=== PATIENT | female | born 1960 | race Caucasian/White ===

== ENCOUNTER → 2025-01-22 13:26 | Outpatient (REF) | payer MEDICARE, OTHER, SELFPAY | LOC: HWRAD 13:26 | PROVIDERS: ATTENDING PHYSICIAN Urology; FAMILY PHYSICIAN Family Medicine | DX: R31.29 Other microscopic hematuria (principal); N32.81 Overactive bladder; N39.3 Stress incontinence (female) (male); M62.89 Other specified disorders of muscle; N95.8 Other specified menopausal and perimenopausal disorders | CPT/HCPCS: 76770; 76830; 76856 ==

== ENCOUNTER → 2025-03-18 13:20 | Outpatient (REF) | payer MEDICARE, OTHER, SELFPAY ==
[2025-03-18 14:07] LABS: Hematocrit 42.7 % (37.0-47.0); Hemoglobin 14.3 g/dL (12.0-16.0); Mean Corp Hgb Conc. 33.5 g/dL (33.0-37.0); Mean Corpuscular Volume 92.2 fL (81.0-99.0); Nucleated Red Blood Cells % 0 %; Platelet Count 206 10^3/uL (130-400); Red Cell Dist. Width 12.1 % (11.5-14.5)
== END ==
LOC: SDSPAT 13:20
PROVIDERS: ATTENDING PHYSICIAN Obstetrics & Gynecology Gynecology; FAMILY PHYSICIAN Family Medicine
DX: Z01.818 Encounter for other preprocedural examination (principal)
CPT/HCPCS: 85025; 93005

== ENCOUNTER → 2025-03-20 13:53 | Outpatient (REF) | payer MEDICARE, OTHER, SELFPAY | LOC: HWWDC 13:53 | PROVIDERS: ATTENDING PHYSICIAN Family Medicine | DX: Z12.31 Encounter for screening mammogram for malignant neoplasm of breast (principal) | CPT/HCPCS: 77063; 77067 ==

== ENCOUNTER 2025-03-22 06:08 | Day surgery (SDC) | payer MEDICARE, OTHER, SELFPAY ==
[2025-03-18 13:58] VITALS: BMI 22.2
[2025-03-22 07:59] VITALS: BP 118/74; BMI 22.2
[2025-03-22] MEDS: NORMOSOL-R/PLASMALYTE-A 1000 IV (08:23)
[2025-03-22 10:18] VITALS: BP 115/70; BP 118/74
[2025-03-22 10:30] VITALS: BP 104/65
[2025-03-22 10:45] VITALS: BP 118/77
[2025-03-22 11:09] VITALS: BP 128/76
[2025-03-22 11:15] VITALS: BP 128/76
== END 2025-03-22 11:25 | disposition home or self-care (01) ==
LOC: SDS 06:08
PROVIDERS: ATTENDING PHYSICIAN Obstetrics & Gynecology Gynecology; FAMILY PHYSICIAN Family Medicine
DX: N85.00 Endometrial hyperplasia, unspecified (principal); Q51.3 Bicornate uterus; R87.618 Other abnormal cytological findings on specimens from cervix uteri
CPT/HCPCS: 58558; 88305; 88342